=== PATIENT | male | born 2000 | race Caucasian/White ===

== ENCOUNTER 2020-04-08 23:23 | Emergency (ER) | payer SELFPAY ==
[2020-04-08 23:24] VITALS: BP 143/67; PULSE 88; RESP 18; TEMP 37.7; O2SAT 100
[2020-04-09 01:30] VITALS: BP 132/66; PULSE 84; RESP 18; O2SAT 99
--- NOTE | 2020-04-09 02:32 | ECG_ITS ---
Measurements Intervals [place] Rate: 87 P: 21 MT: 143 QRS: 18 QRSD: 92 T: 26 QT: 362 QTc: 438 Interpretive Statements SINUS RHYTHM NONSPECIFIC T-WAVE ABNORMALITY- INFERIOR LEADS BORDERLINE ECG Electronically Signed On 04-09-2020 6:46:18 CDT by Rei Longoria D.O.
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
[2020-04-09 03:30] VITALS: BP 126/62; PULSE 72; RESP 16; O2SAT 100
== END 2020-04-09 03:40 | disposition home or self-care (01) ==
PROVIDERS: Emergency Provider General Practice
DX: L55.1 Sunburn of second degree (principal); F17.210 Nicotine dependence, cigarettes, uncomplicated; R07.89 Other chest pain; R94.31 Abnormal electrocardiogram [ECG] [EKG]
CPT/HCPCS: 93005; 99283

== ENCOUNTER 2021-03-10 10:32 | Emergency (ER) | payer SELFPAY ==
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
[2021-03-10 10:52] VITALS: BP 140/62; PULSE 77; RESP 18; TEMP 36.6; O2SAT 100
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
== END 2021-03-10 12:28 | disposition home or self-care (01) ==
PROVIDERS: Emergency Provider Emergency Medicine
DX: R51.9 Headache, unspecified (principal); F17.210 Nicotine dependence, cigarettes, uncomplicated; W23.0XXA Caught, crushed, jammed, or pinched between moving objects, initial encounter
CPT/HCPCS: 70450; 99284

== ENCOUNTER 2021-09-05 13:53 | Emergency (ER) | payer OTHER, SELFPAY ==
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
[2021-09-05 15:28] VITALS: BP 122/85; PULSE 90; RESP 16; TEMP 36.8; O2SAT 100
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
[2021-09-05] MEDS: ACETAMINOPHEN 500 MG TABLET 1000 MG PO (16:14)
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
[2021-09-05 16:33] VITALS: BP 116/94; PULSE 85; RESP 18; O2SAT 100
--- NOTE | 2021-09-05 16:34 | PC.NURSE ---
Pt wanted note stating he was here today, provided pt with work note
== END 2021-09-05 16:34 | disposition home or self-care (01) ==
PROVIDERS: Emergency Provider Emergency Medicine
DX: S09.90XA Unspecified injury of head, initial encounter (principal); S16.1XXA Strain of muscle, fascia and tendon at neck level, initial encounter; F17.210 Nicotine dependence, cigarettes, uncomplicated; V49.50XA Passenger injured in collision with unspecified motor vehicles in traffic accident, initial encounter
CPT/HCPCS: 70450; 72125; 99284; A9270